=== PATIENT | female | born 1980 | race Caucasian/White ===

== ENCOUNTER 2017-02-12 21:04 | Emergency (ER) | payer MEDICAID ==
[~2017-02-12] VITALS: Ht 160 cm; Wt 70.8 kg
[~2017-02-12 21:04] MED LIST: CIPRO 500MG TA500 MG PO
--- OUTSIDE RECORDS SUMMARY | 2017-02-12 21:40 | External Medical Summary Rpt | CCD ---
Author Author , NURA Organization NURA Address Unknown Phone [email or web address] Care Team Providers Care Asset Administrator Name Role Phone [facility] # [id number], Unavailable Unavailable [facility] # [id number] DESMOND GOMEZ, Unavailable Unavailable DESMOND GOMEZ EMMETT P, Unavailable Unavailable WESTON ALFARO NOEL B, JOSSELYN, Unavailable Unavailable SHANNAN PALACIOS Unavailable Unavailable JONNATHAN GUILLORY, Unavailable Unavailable JONNATHAN BELLA BABATUNDE O, Unavailable Unavailable CARMEN QUINONESATUNDE O [facility] Unavailable Unavailable [facility], [facility] Unavailable Unavailable PHYSICIANS, [facility] Purpose Continuity of Care Document - 03-08-2008 through 2016 Problems Code Diagnosis DOS Provider Status 5990 URINARY 08-05-2010 [facility] INFECTION MEDICALCENT SITE NOT ER SPECIFIED 7881 DYSURIA 08-05-2010 [facility] PHYSICIANS V061 NEED PROPH 07-25-2009 [facility] W/COMB MEDICAL DIPHTH-TETA GROUP NUS-PERTUSS VAC V700 ROUTINE 07-[facility]-2009 [email or web address] [id number] UNSPEC 07-10-2009 [place] [facility]GENCY WITHOUT SERVICES [facility] INTRACT EPILEPSY 80338 OTHER 07-10-2009 [place] [facility] 3671 MYOPIA 12-19-2008 DESMOND GOMEZ 30347 UNSPECIFIED 03-08-2008 GABRIELLE ARCOS ASTIGMATISM Medications Na ND Rx Da Fi Fi Am Da Di Ph RX Ph St me C No te ll ll ou ys ag ar # ys at rm s nt no ma ic us Or Da si cy ia de te s n re d CI 16 04 04 0 20 10 CV 56 SC Ac ND 25 -1 -1 .0 S 76 ANDERSON ti OF 20 1- 1- 00 PH 30 CK ve LO 51 20 20 AR XA 50 11 11 MA BR CI 1 CY IA N # N HC L 05 50 43 0 7 MG TA B CI 16 03 03 14 7 CV 52 GA Ac ND 25 -1 -1 .0 S 50 IN ti OF 20 7- 7- 00 PH 37 EY ve LO 51 20 20 AR XA 50 10 10 MA IN CI 1 CY CH N # AE HC L L 05 S 50 43 0 7 MG TA B Procedures Procedure DOS Code Location Performer Comment CULTURE [address] BACTERIAL 1 KRISTOPHER KRISTOPHER QUANTTATI MEDICALCE MEDICALCE VE COLONY NTER NTER COUNT URINE URNLS DIP [address]7064 ST SCHACK 1 KRISTOPHER SHAWN STICK/TAB LET RGNT PHYSICIAN NON-AUTO S W/O MICRSCP 3D 53556 [place] DOMINIC, RENDERING 0 MEDICAL [place] P W/INTERP IMAGING & [place] [address] [place] [facility], HEAD/BRAI 0 MEDICAL [place] P N W/O IMAGING CONTRAST ASSOCIATE MATERIAL S DETERMINA 59199 PATRICIA GOMEZ TION 9 DESMOND Lundy REFRACTIV E STATE OPHTH 75731 PATRICIA GOMEZ, MEDICAL 9 DESMOND Lundy XM&EVAL COMPRE NEW PT 1/> VST OPH 22041 JOSSELYN ARCOS MEDICAL 8 GABRIELLE Santos Graham XM&EVAL COMPRHNSV ESTAB PT 1/> Encounters Encounter Start End Date Code Location Performer Type Date [facility] ST - 1 1 KRISTOPHER OUTPATIEN T MEDICALCE NTER INITIAL 80942 SUM[facility] BELLA, PREVENTIV 0 0 MEDICAL JONNATHAN Wilhelm GROUP MEDICINE NEW PT AGE 18-39YRS EMERGENCY 77364 NIRMAL QUINONES, DEPT 0 0 EMERGENCY NIKOLAI VISIT SERVICES O HIGH SEVERITY& ASSOCIATE THREAT S FUN
--- OUTSIDE RECORDS SUMMARY | 2017-02-12 21:40 | External Medical Summary Rpt | CCD ---
Author Author , NURA Organization NURA Address Unknown Phone [email or web address] Care Team Providers Care Demolition Engineer Name Role Phone [facility] # [id number], Unavailable Unavailable [facility] # [id number] DESMOND GOMEZ, Unavailable Unavailable DESMOND GOMEZ EMMETT P, Unavailable Unavailable WESTON ALFARO NOEL B, JOSSELYN, Unavailable Unavailable SHANNAN PALACIOS Unavailable Unavailable JONNATHAN GUILLORY, Unavailable Unavailable JONNATHAN BELLA BABATUNDE O, Unavailable Unavailable CARMEN QUINONESATUNDE O [facility] Unavailable Unavailable [facility]ENTER, [facility] Unavailable Unavailable PHYSICIANS, [facility] Purpose Continuity of Care Document - 03-08-2008 through 2016 Problems Code Diagnosis DOS Provider Status 5990 URINARY 08-05-2010 [facility] INFECTION MEDICALCENT SITE NOT ER SPECIFIED 7881 DYSURIA 08-05-2010 [facility] PHYSICIANS V061 NEED PROPH 07-25-2009 [facility] W/COMB MEDICAL DIPHTH-TETA GROUP NUS-PERTUSS VAC V700 ROUTINE 07-25-2009 [facility] [email or web address] 23895 UNSPEC 07-10-2009 [place] [facility] EMERGENCY WITHOUT SERVICES [facility] INTRACT EPILEPSY 91980 OTHER 07-10-2009 [place] [facility] 3671 MYOPIA 12-19-2008 DESMOND GOMEZ 82601 UNSPECIFIED 03-08-2008 GABRIELLE ARCOS ASTIGMATISM Medications Na ND Rx Da Fi Fi Am Da Di Ph RX Ph St me C No te ll ll ou ys ag ar # ys at rm s nt no ma ic us Or Da si cy ia de te s n re d CI 16 04 04 0 20 10 CV 56 SC Ac [place] 25 -1 -1 .0 S 76 ANDERSON ti OF 20 1- 1- 00 PH 30 CK ve LO 51 20 20 AR XA 50 11 11 MA BR CI 1 CY IA N # N HC L 05 50 43 0 7 MG TA B CI 16 03 03 14 7 CV 52 GA Ac [place] 25 -1 -1 .0 S 50 IN ti OF 20 7- 7- 00 PH 37 EY ve LO 51 20 20 AR XA 50 10 10 MA MA CI 1 CY CH N # AE HC L L 05 S 50 43 0 7 MG TA B Procedures Procedure DOS Code Location Performer Comment CULTURE [address] BACTERIAL 1 KRISTOPHERDIANE [facility] MED[facility] MEDICALCE VE COLONY NTER NTER COUNT URINE URNLS DIP 49589 ST SCHACK 1 KRISTOPHER SHAWN STICK/TAB LET RGNT PHYSICIAN NON-AUT[place] W/[place] [address] [place] DOMINIC, HEAD/BRAI 0 MEDICAL [place] P N W/O IMAGING CONTRAST ASSOCIATE MATERIAL S 3D 53886 [place] [facility], RENDERING 0 MEDICAL [place] P W/INTERP IMAGING & ASSOCIATE [place] [address] PATRICIA GOMEZ, MEDICAL 9 DESMOND Lundy XM&EVAL COMPRE NEW PT 1/> VST DETERMINA 39581 PATRICIA GOMEZ TION 9 DESMOND Lundy REFRACTIV E [facility] OPH 98196 JOSSELYN ARCOS MEDICAL 8 GABRIELLE Santos Graham XM&EVAL COMPRHNSV ESTAB PT 1/> Encounters Encounter Start End Date Code Location Performer Type Date [facility] ST - 1 1 KRISTOPHER OUTPATIEN T MEDICALCE NTER INITIAL 35062 [place] JENA, PREVENTIV 0 0 MEDICAL JONNATHAN Wilhelm GROUP MEDICINE NEW PT AGE 18-39YRS EMERGENCY 86898 NIRMAL QUINONES, DEPT 0 0 EMERGENCY NIKOLAI VISIT SERVICES O HIGH SEVERITY& ASSOCIATE THREAT S [facility]
--- OUTSIDE RECORDS SUMMARY | 2017-02-12 21:40 | External Medical Summary Rpt | CCD ---
Author Author , NURA Organization NURA Address Unknown Phone [email or web address] Care Team Providers Care Rn Plasma Center Name Role Phone [facility] # [id number], Unavailable Unavailable [facility] # [id number] DESMOND GOMEZ, Unavailable Unavailable DESMOND GOMEZ EMMETT P, Unavailable Unavailable WESTON ALFARO NOEL B, JOSSELYN, Unavailable Unavailable SHANNAN PALACIOS Unavailable Unavailable JONNATHAN GUILLORY, Unavailable Unavailable JONNATHAN BELLA BABATUNDE O, Unavailable Unavailable CARMEN QUINONESATUNDE O [facility] Unavailable Unavailable [facility], [facility] Unavailable Unavailable PHYSICIANS, [facility] Purpose Continuity of Care Document - 03-08-2008 through 2016 Problems Code Diagnosis DOS Provider Status 5990 URINARY 08-05-2010 [facility] INFECTION MEDICALCENT SITE NOT ER SPECIFIED 7881 DYSURIA 08-05-2010 [facility] PHYSICIANS V061 NEED PROPH 07-25-2009 [facility] W/COMB MEDICAL DIPHTH-TETA GROUP NUS-PERTUSS VAC V700 ROUTINE 07-25-2009 [facility] [email or web address] 82224 UNSPEC 07-10-2009 [place] [facility] EMERGENCY WITHOUT SERVICES [facility] INTRACT EPILEPSY 24594 OTHER 07-10-2009 [place] [facility] 3671 MYOPIA 12-19-2008 DESMOND GOMEZ 17687 UNSPECIFIED 03-08-2008 GABRIELLE ARCOS ASTIGMATISM Medications Na ND Rx Da Fi Fi Am Da Di Ph RX Ph St me C No te ll ll ou ys ag ar # ys at rm s nt no ma ic us Or Da si cy ia de te s n re d CI 16 04 04 0 20 10 CV 56 SC Ac [place] 25 -1 -1 .0 S 76 ANDERSON ti OF 20 1- 1- 00 PH 30 CK ve LO 51 20 20 AR XA 50 11 11 MA BR CI 1 CY IA N # N HC L 05 50 43 0 7 MG TA B CI 16 03 03 14 7 CV 52 GA Ac [place] 25 -1 -1 .0 S 50 IN ti OF 20 7- 7- 00 PH 37 EY ve LO 51 20 20 AR XA 50 10 10 MA CO CI 1 CY CH N # AE HC L L 05 S 50 43 0 7 MG TA B Procedures Procedure DOS Code Location Performer Comment CULTURE [address] BACTERIAL 1 KRISTOPHERDIANE [facility] MEDICALCE VE COLONY NTER NTER COUNT URINE URNLS DIP 39156 ST SCHACK 1 KRISTOPHER SHAWN STICK/TAB LET RGNT PHYSICIAN NON-AUT[place] W/[place] [address] [place] [facility]INIC, HEAD/BRAI 0 MEDICAL [place] P N W/O IMAGING CONTRAST ASSOCIATE MATERIAL S 3D 28623 [place] [facility], RENDERING 0 MEDICAL [place] P W/INTERP IMAGING & ASSOCIATE [place] [address] PATRICIA GOMEZ, MEDICAL 9 DESMOND Lundy XM&EVAL COMPRE NEW PT 1/> VST DETERMINA 24559 PATRICIA GOMEZ TION 9 DESMOND Lundy REFRACTIV E [facility] OPH 35661 JOSSELYN ARCOS MEDICAL 8 GABRIELLE Santos Graham XM&EVAL COMPRHNSV ESTAB PT 1/> Encounters Encounter Start End Date Code Location Performer Type Date [facility] ST - 1 1 KRISTOPHER OUTPATIEN T MEDICALCE NTER INITIAL 67477 [facility] JENA, PREVENTIV 0 0 MEDICAL JONNATHAN Wilhelm GROUP MEDICINE NEW PT AGE 18-39YRS EMERGENCY 22446 NIRMAL QUINONES, DEPT 0 0 EMERGENCY NIKOLAI VISIT SERVICES O HIGH SEVERITY& ASSOCIATE THREAT S [facility]
--- OUTSIDE RECORDS SUMMARY | 2017-02-12 21:40 | External Medical Summary Rpt | CCD ---
Demographics Preferred Language East Timorese Marital Status Unknown Sabianist Affiliation Unknown Race Unknown Ethnic Group Unknown Author Author , NURA LYMAN Address Unknown Phone Immunization No patient found.
--- OUTSIDE RECORDS SUMMARY | 2017-02-12 21:40 | External Medical Summary Rpt | CCD ---
Author Author , NURA Organization NURA Address Unknown Phone [email or web address] Care Team Providers Care Merchandise Flow Team Leader Name Role Phone [facility] # [id number], Unavailable Unavailable [facility] # [id number] DESMOND GOMEZ, Unavailable Unavailable DESMOND GOMEZ EMMETT P, Unavailable Unavailable WESTON ALFARO NOEL B, JOSSELYN, Unavailable Unavailable SHANNAN PALACIOS Unavailable Unavailable JONNATHAN GUILLORY, Unavailable Unavailable JONNATHAN BELLA BABATUNDE O, Unavailable Unavailable CARMEN QUINONESATUNDE O [facility] Unavailable Unavailable [facility]ENTER, [facility] Unavailable Unavailable PHYSICIANS, [facility] Purpose Continuity of Care Document - 03-08-2008 through 2016 Problems Code Diagnosis DOS Provider Status 5990 URINARY 08-05-2010 [facility] INFECTION MEDICALCENT SITE NOT ER SPECIFIED 7881 DYSURIA 08-05-2010 [facility] PHYSICIANS V061 NEED PROPH 07-25-2009 [facility] W/COMB MEDICAL DIPHTH-TETA GROUP NUS-PERTUSS VAC V700 ROUTINE 07-25-2009 [facility] [email or web address] 64857 UNSPEC 07-10-2009 [place] [facility] EMERGENCY WITHOUT SERVICES [facility] INTRACT EPILEPSY 52237 OTHER 07-10-2009 [place] [facility] 3671 MYOPIA 12-19-2008 DESMOND GOMEZ 91495 UNSPECIFIED 03-08-2008 GABRIELLE ARCOS ASTIGMATISM Medications Na ND Rx Da Fi Fi Am Da Di Ph RX Ph St me C No te ll ll ou ys ag ar # ys at rm s nt no ma ic us Or Da si cy ia de te s n re d CI 16 04 04 0 20 10 CV 56 SC Ac SC 25 -1 -1 .0 S 76 ANDERSON ti OF 20 1- 1- 00 PH 30 CK ve LO 51 20 20 AR XA 50 11 11 MA BR CI 1 CY IA N # N HC L 05 50 43 0 7 MG TA B CI 16 03 03 14 7 CV 52 GA Ac SC 25 -1 -1 .0 S 50 IN ti OF 20 7- 7- 00 PH 37 EY ve LO 51 20 20 AR XA 50 10 10 MA ME CI 1 CY CH N # AE HC L L 05 S 50 43 0 7 MG TA B Procedures Procedure DOS Code Location Performer Comment CULTURE [address] BACTERIAL 1 KRISTOPHER KRISTOPHER QUANTTATI MEDICALCE MEDICALCE VE COLONY NTER NTER COUNT URINE URNLS DIP 46065 ST SCHACK 1 KRISTOPHER SHANW STICK/TAB LET RGNT PHYSICIAN NON-AUTO S W/O MICRSCP 3D 09478 [place] DOMINIC, RENDERING 0 MEDICAL [place] P W/INTERP IMAGING & [place] [address] [place] DOMINIC, HEAD/BRAI 0 MEDICAL [place] P N W/O IMAGING CONTRAST ASSOCIATE MATERIAL S DETERMINA 08086 PATRICIA GOMEZ TION 9 DESMOND Lundy REFRACTIV E STATE OPHTH 40734 PATRICIA GOMEZ, MEDICAL 9 DESMOND Lundy XM&EVAL COMPRE NEW PT 1/> VST OPH 82616 JOSSELYN ARCOS MEDICAL 8 GABRIELLE Santos Graham XM&EVAL COMPRHNSV ESTAB PT 1/> Encounters Encounter Start End Date Code Location Performer Type Date [facility] ST - 1 1 KRISTOPHER OUTPATIEN T MEDICALCE NTER INITIAL 06459 SUM[facility]ERROD BELLA, PREVENTIV 0 0 MEDICAL JONNATHAN Wilhelm GROUP MEDICINE NEW PT AGE 18-39YRS EMERGENCY 85477 NIRMAL QUINONES, DEPT 0 0 EMERGENCY NIKOLAI VISIT SERVICES O HIGH SEVERITY& ASSOCIATE THREAT S FUN
--- OUTSIDE RECORDS SUMMARY | 2017-02-12 21:40 | External Medical Summary Rpt | CCD ---
Demographics Preferred Language Danish Marital Status Unknown Scientologist Affiliation Unknown Race Unknown Ethnic Group Unknown Author Author , NURA LYMAN Address Unknown Phone Immunization No patient found.
--- NOTE | 2017-02-12 21:44 | Emergency Room Report ---
History of Present Illness Time Seen by 2047 Presenting Problem in Triage Pt arrived:Walked Presenting Problem:HEAVY MENSTRUAL BLEEDING, PASSING CLOTS, NO ABD CRAMPING AT THIS TIME. SXS STARTED THIS EVENING AROUND 1999. 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 N Clinical Suspician of Infection? N Mental Status: 1 - Regular (Normal Baseline) Sepsis Risk:Low Sepsis Risk Have you (or family members/close friends) recently traveled outside the [place]? N If Yes, where/when: Have you had exposure to infectious disease within the past month? N TB? Other? Specify: Source patient, RN notes reviewed, family, old records Exam Limitations no limitations Comment on reg menses and now with heavy bleeding with clots and crampy pain which started today w/o syncope Cardiac Chest Pain Chest pain indicative of cardiac No Timing/Duration this evening Severity moderate ALLERGIES Coded Allergies: Penicillins (Intermediate, I-HIVES 02/12/17) Home Medications Reported Medications No Known Home Medications History Medical History General Angina: No NC: No Hypertension? No Hyperlipidemia? No COPD? No Asthma? No CVA? No Seizures? Yes Diabetes? No GB Disease: No MRSA? No TB? No Cancer? 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 Respiratory denies cough, denies shortness of breath, denies wheezing Cardiovascular denies chest pain, denies syncope Gastrointestinal denies abdominal pain, denies diarrhea, denies vomiting Genitourinary see HPI, abnormal vaginal bleeding. denies: dysuria, frequency, hesitancy, hematuria. Musculoskeletal denies back pain, denies joint pain, denies joint swelling, denies neck pain Skin denies rash Psychiatric/Neurological denies headache, denies seizure Physical Exam Vital Signs Vital Signs Date Time Temp Pulse Resp B/P Pulse O2 O2 Flow FiO2 Ox Delivery Rate 02/12 2249 98.6 69 18 118/65 100 02/12 2210 63 20 106/57 98 02/12 2121 98.7 77 20 141/49 99 - WBC >12,000 or <4,000 or 10% bands? 2 or more SIRS Criteria Met? B/P:118/65 MAP:79 Creatinine >2.0? UA output<0.5ml/kg/hr for 2 hrs? Platelet count >100,000? Lactate >2.0mmol/1? INR >1.2 or PTT > than 60 sec? Evidence of Organ Dysfunction? Provider documented clinical suspician of infection? N Sepsis Criteria Count: 1 Sepsis Risk: Low Sepsis Risk General Appearance no apparent distress Eye Exam - bilateral eye PERRL, bilateral eye EOMI Ear, Nose, Throat normal ENT inspection Neck supple Respiratory Status No: respiratory distress. 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 No Results/Orders Laboratory Tests 02/12/17 2335: Urine Color YELLOW, Urine Appearance CLEAR, Urine pH 6.0, Ur Specific Ambrose 1.020, Urine Protein 1+ H, Urine Ketones NEGATIVE, Urine Blood 2+ H, Urine Nitrate NEGATIVE, Urine Bilirubin NEGATIVE, Urine Urobilinogen 0.2, Ur Leukocyte Esterase NEGATIVE, Urine RBC 20-50, Urine Bacteria 1+, Urine Glucose NEGATIVE 02/12/17 2225: Sodium 140, Potassium 4.2, Chloride 107, Carbon Dioxide 30, BUN 12, Creatinine 0.9, Estimated Creat Clear 96, Estimated GFR (MDRD) 70, Glucose 103, Calcium 7.9 L, Total Bilirubin 0.2, AST 10 L, ALT 10 L, Alkaline Phosphatase 60, Total Protein 6.2 L, Albumin 2.8 L, Globulin 3.4 H, Albumin/Globulin Ratio 0.8 L 02/12/17 2150: WBC 12.2 H, RBC 4.32, Hgb 12.2, Hct 36.5 L, MCV 84.6, RDW 15.2, Plt Count 272, MPV 9.6, Gran % 50.3, Gran # 6.1, Lymphocytes % 39.6, Monocytes % 4.4, Eosinophils % 4.8, Basophils % 0.9, Lymphocytes # 4.8 H, Monocytes # 0.5, Eosinophils # 0.6 H, Basophils # 0.1, PUBS MCHC 33.3, MCH 28.2 Current Medication Orders Sig/Gladys Start time Last Medication Dose Route Stop Time Status Admin Sodium Chloride 1,000 ML .STK-MED ONE 02/12 2131 DC IV Sodium Chloride 10 ML PRN PRN 02/12 2130 AC IV 02/14 2128 Sodium Chloride 1,000 ML .Q1H1M 02/12 2130 DC 02/12 IV 02/12 Sodium Chloride 10 ML PRN PRN 02/12 2130 AC IV 02/13 2130 Orders Procedure Date/time Status DIET-NOTHING BY MOUTH 02/[address] ABD & PELVIS W/O CONTRAST 02/[address] SCAN REQ 02/13 2212 Complete SERUM , QUAL 02/13 2144 Complete IV SALINE LOCK 02/13 2128 Active Urine Test, Perform/ 02/13 2128 Complete URINALYSIS/COMPLETE 02/13 2128 Complete CBC WITH AUTO DIFF 02/13 2128 Complete CHEM 12 PROFILE 02/13 2128 Complete XRAY/CT/US XRAY/CT/US CT abdomen, pelvis CT interpretation by discussed w/radiologist Time results known: 0005 CT Results abnormal (see report) Departure Departure Time of Disposition 2357 Disposition DC Home or Self Care(routine) Clinical Impression Primary Impression: DUB (dysfunctional uterine bleeding) Secondary Impressions: Cholelithiasis Qualifiers: Cholelithiasis location: gallbladder Cholecystitis presence: without cholecystitis Biliary obstruction: without biliary obstruction Qualified Code: K80.20 - Calculus of gallbladder without cholecystitis without obstruction Condition STABLE Referrals Marycruz SHINE,Gregory Valdez discussed with dr colby Patient Instructions DI for Abnormal Uterine Bleeding Additional Instructions call dr colby at 0830 for follow up and use nsaif Discharge Counseling Counseled pt/family regarding diagnosis, test results, follow up needs Prescriptions Current Visit Scripts No Known Home Medications ED Critical Care Critical Care No at 0006
[2017-02-12 22:01] LABS: LYMPH # 4.8 K/mm3 (0.7-4.5); LYMPH % 39.6 % (10-50.0)
[2017-02-12 22:28] LABS: HEMOGLOBIN 12.2 g/dL (12.2-16.2)
[2017-02-12 23:46] LABS: URINE BILIRUBIN - DIPSTICK NEGATIVE (NEG); URINE BLOOD 2+ (NEG)
[2017-02-13 00:23] VITALS: BP 99/51
--- NOTE | 2017-02-13 06:30 | RADIOLOGY REPORT PS360 ---
CT ABD PELVIS W/O CONTRAST CLINICAL INDICATION: Lower abdominal pain with heavy vaginal bleeding ABD PAIN ORDERING PHYSICIAN: Anitha Ramirez MD PATIENT AGE: 36 years COMPARISON: None TECHNIQUE: Axial images obtained with sagittal and coronal reformats. PROCEDURE: Oral Contrast: None IV Contrast: None . FINDINGS: No acute finding in the lower chest. Abdomen: The liver, spleen, adrenal glands, pancreas, kidneys, ureters, and urinary bladder show no acute finding. Left adrenal gland is however enlarged measuring up to 2.8 x 1.5 cm and at -9 Hounsfield units consistent with an adenoma. Multiple stones are present within a contracted gallbladder. No biliary dilatation. No renal or ureteral calculi. There is an appendicolith present within the retrocecal appendix. Appendicolith measures 8 mm. No evidence of appendicitis. No intestinal obstruction or free air. No evidence of diverticulitis. Pelvis: The uterus is enlarged and has a somewhat lobular contour with some heterogeneous attenuation along the lower uterine segment. These findings raise suspicion of fibroid involvement. Pelvic ultrasound may be of further value. Uterus measures 12.7 cm longitudinal and 9 cm transverse. There is some slight increased density along the uterine fundal region which could be due to fibroid involvement as well. There is some increased density within the vaginal canal which could be due to blood products No acute bony anomalies. INDICATION: 1. Cholelithiasis. 2. Enlarged lobular uterus suggestive of fibroids and may be confirmed with ultrasound. Possible blood within the vaginal canal
== END 2017-02-13 00:24 | disposition home or self-care (01) ==
LOC: ER 21:04
PROVIDERS: Emergency Medicine
DX: N93.8 Other specified abnormal uterine and vaginal bleeding (principal); K80.80 Other cholelithiasis without obstruction; F17.210 Nicotine dependence, cigarettes, uncomplicated

== ENCOUNTER → 2017-02-19 | Outpatient (CLI) | payer MEDICAID ==
--- NOTE | 2017-02-19 16:00 | RADIOLOGY REPORT PS360 ---
US PELVIS-TRANSVAGINAL ONLY HISTORY: Dysfunctional uterine bleeding, DUB ORDERING PHYSICIAN: Gregory Joel MD PATIENT AGE: 36 years COMPARISON: None FINDINGS: UTERUS: The uterus measures 10 x 6 x 6.5 cm. Combined endometrial thickness is 13 mm. Heterogeneous echogenicity is present in the anterior aspect of the body the uterus consistent with fibroid measuring 2.4 x 2.5 cm. There are multiple nabothian cysts RIGHT OVARY: 3 x 2.7 cm. 2 cm cyst LEFT OVARY: 3.7 x 2.6 cm. There is a 2 cm cyst and a 1 cm cyst CUL-DE-SAC FLUID: No cul-de-sac fluid apparent OTHER FINDINGS: None IMPRESSION: 1. Enlarged uterus with fibroid involvement. 2. Thickened endometrium at 13 mm. 3. Small bilateral ovarian cysts
== END ==
LOC: RAD 15:06
DX: N92.0 Excessive and frequent menstruation with regular cycle (principal); N93.8 Other specified abnormal uterine and vaginal bleeding; D25.9 Leiomyoma of uterus, unspecified

== ENCOUNTER → 2017-03-03 | Outpatient (CLI) | payer MEDICAID ==
[~2017-03-03] MED LIST changes: +FERROUS SULFAT325 M2 PO; +HYDROCODONE-APA1 TA1 PO
[2017-03-03 11:52] LABS: URINE BILIRUBIN - DIPSTICK NEGATIVE (NEG); URINE BLOOD TRACE-INTACT (NEG)
[2017-03-03 12:07] LABS: LYMPH # 2.8 K/mm3 (0.7-4.5); LYMPH % 32.5 % (10-50.0)
[2017-03-03 12:13] LABS: HEMOGLOBIN 7.5 g/dL (12.2-16.2)
[2017-03-03 12:18] LABS: URINE SQUAMOUS CELLS OCC #/hpf (0-5)
[2017-03-03 13:03] LABS: BUN 12 mg/dL (7-18)
[2017-03-03 13:04] LABS: GFR (ESTIMATED) 94 ML/MIN (59-)
== END ==
LOC: LAB 11:13
PROVIDERS: Obstetrics & Gynecology
DX: N92.0 Excessive and frequent menstruation with regular cycle (principal); D25.9 Leiomyoma of uterus, unspecified; Z01.818 Encounter for other preprocedural examination

== ENCOUNTER → 2017-03-04 | Outpatient (CLI) | payer MEDICAID ==
[2017-03-04] VITALS (19 sets, daily range): BP systolic 100–143; BP diastolic 54–74
[~2017-03-04] VITALS: Ht 160 cm; Wt 72.1 kg
[2017-03-04 09:18] LABS: ABO BLOOD TYPE A; RH BLOOD TYPE POSITIVE
[2017-03-04 10:15] LABS: ANTIHUMAN GLOB CROSSMATCH COMPAT
[2017-03-04 15:29] LABS: HEMOGLOBIN 10.2 g/dL (12.2-16.2)
== END ==
LOC: COP 08:10
PROVIDERS: Obstetrics & Gynecology
DX: D64.9 Anemia, unspecified (principal)
CPT/HCPCS: P9016

== ENCOUNTER 2017-03-06 06:09 | Inpatient (IN) | payer MEDICAID ==
[2017-03-06] VITALS (13 sets, daily range): BP systolic 110–125; BP diastolic 59–74
[~2017-03-06] VITALS: Ht 160 cm; Wt 72.1 kg
[~2017-03-06 06:09] MED LIST changes: -FERROUS SULFAT325 M2 PO; -HYDROCODONE-APA1 TA1 PO
--- OUTSIDE RECORDS SUMMARY | 2017-03-06 06:13 | External Medical Summary Rpt | CCD ---
Demographics Preferred Language Danish Marital Status Unknown Yazdanism Affiliation Unknown Race Unknown Ethnic Group Unknown Author Author , NURA LYMAN Address Unknown Phone Immunization Unable to retrieve immunization data due to connection failure with Immunization Registry. Please try again later.
--- OUTSIDE RECORDS SUMMARY | 2017-03-06 06:13 | External Medical Summary Rpt | CCD ---
Author Author , NURA LYMAN Address Unknown Phone [email or web address] Purpose Continuity of Care Document - 02-12-2017 through 2016 Results Labs Lab Lab Date Result Refere Interp Status Commen Order Detail nces retati t Range on Whole blood hemoglobin and hematocrit pa (03-04-2017 15:06) Blood = 10.2 12.2-16 complet hemoglo 017 g/dL .2 ed bin 15:06 measure ment (mass/v olum Blood = 32.6 37.0-47 complet hematoc 017 % .0 ed rit 15:06 (volume fractio n) Blood product special preparation [Type] (03-04-2017 12:15) Blood BLOOD complet product 017 UNIT ed 12:15 RELEASE special prepara tion [Type] Leukocyte reduction of packed red blood (03-04-2017 10:03) Leukocy BLOOD complet te 017 UNIT ed reducti 10:03 RELEASE on of BLOOD packed UNIT red RELEASE blood L Comment: Comment: BLOOD UNIT # : [id number] RELEASED 03/04/17 Comment: Kya Santa Blood product special preparation [Type] (03-04-2017 10:03) Blood BLOOD complet product 017 UNIT ed 10:03 RELEASE special prepara tion [Type] Crossmatch (03-04-2017 08:30) Comment: Hold? N Comment: Transfuse now? 2 UNITS NOW Immedia COMPAT complet te spin 017 COMPAT ed 08:30 L crossma tch Interpr COMPAT complet etation 017 COMPAT ed of 08:30 L major crossma tch resul Blood type and crossmatch (03-04-2017 08:30) Comment: Hold? N Comment: Transfuse now? 2 UNITS NOW Blood A A L complet ABO 017 ed group 08:30 typing Rh POSITIV complet blood 017 E ed group 08:30 POSITIV typing E L Materna NEGATIV NEGATIV complet l 017 E E ed antibod 08:30 NEGATIV y E L screen Blood type & Crossmatch panel in Blood (03-04-2017 08:30) Blood NEGATIV NEGATIV complet group 017 E E ed antibod 08:30 y screen [Presen ce] in Serum or Plasma Rh POSITIV complet [Type] 017 E ed in 08:30 Blood ABO A complet group 017 ed [Type] 08:30 in Blood Blood type & Crossmatch panel in Blood (03-04-2017 08:30) Major COMPAT complet crossma 017 ed tch 08:30 [interp retatio n] Major COMPAT complet crossma 017 ed tch 08:30 [interp retatio n] by Immedia te spin Comprehensive metabolic panel (03-03-2017 11:16) Protein = 7.3 6.4-8.2 complet total 017 gm/dL ed ser/jas 11:16 s ALT = 19 12-78 complet (SGPT) 017 U/L ed ser/jas 11:16 s Serum = 13 15-37 complet or 017 U/L ed plasma 11:16 asparta te aminotr ansfera Serum = 138 136-145 complet sodium 017 mmoL/L ed measure 11:16 ment Serum = 4.4 3.5-5.1 complet potassi 017 mmoL/L ed um 11:16 measure ment Serum = 91 74-106 complet or 017 mg/dL ed plasma 11:16 glucose measure ment (mas Serum = 3.9 1.3-3.2 complet globuli 017 gm/dL ed n 11:16 measure ment (mass/v olume) Estimat = 94 59- complet ed 017 ML/MIN ed glomeru 11:16 lar filtrat ion rate (GF Comment: REFERENCE RANGE: >60 ML/MIN/1.73 SQUARE METERS Comment: If this patient is -Pakistani, then multiply the Comment: result by 1.210. Serum = 0.7 0.55-1. complet or 017 mg/dL 02 ed plasma 11:16 creatin ine measure ment ( Carbon = 27 21.0-32 complet dioxide 017 mmoL/L .0 ed 11:16 measure ment Serum = 104 98-107 complet or 017 mmoL/L ed plasma 11:16 chlorid e measure ment (mo Serum = 8.5 8.5-10. complet or 017 mg/dL 1 ed plasma 11:16 calcium measure ment (mas Serum = 12 7-18 complet or 017 mg/dL ed plasma 11:16 urea nitroge n measure men Serum = 0.2 0.2-1.0 complet or 017 mg/dL ed plasma 11:16 total bilirub in measure m Serum = 70 46-116 complet or 017 U/L ed plasma 11:16 alkalin e phospha tase janet Serum = 3.4 3.4-5.0 complet or 017 gm/dL ed plasma 11:16 albumin measure ment (mas Serum = 0.9 1.1-1.8 complet or 017 ed plasma 11:16 albumin /globul in mass ra Serum test (03-03-2017 11:16) Serum = NEG complet pregnan 017 NEGATIV ed cy test 11:16 E Urinalysis with microscopy (03-03-2017 11:16) Urine = NONE O complet leukocy 017 wbc/hpf ed shahab 11:16 count (number /volume ) Urine 0.2 0.2 NEG complet urobili 017 L ed nogen 11:16 E.U./dL detecti on by test str [place] OCC OCC 0-5 complet s 017 L ed epithel 11:16 #/hpf ial cells detecti on in u Urine = 1.010 1.005-1 complet specifi 017 .030 ed c 11:16 gravity measure ment Erythro OCC OCC 0 complet cytes 017 L ed detecti 11:16 rbc/hpf on in urine sedimen t Urine = NEG complet protein 017 NEGATIV ed 11:16 E mg/dL measure ment by automat ed t Urine = 5.5 5.0-8.5 complet pH 017 ed 11:16 Urine NEGATIV NEG complet nitrite 017 E ed 11:16 NEGATIV detecti E L on by test strip Mucus NEGATIV NEG complet detecti 017 E ed on in 11:16 NEGATIV urine E L sedimen t by lig Urine NEGATIV NEG complet ketones 017 E ed 11:16 NEGATIV detecti E L on by mg/dL automat ed shahab Glucose = NEG complet ur 017 NEGATIV ed test 11:16 E strip Urine YELLOW YELLOW complet color 017 YELLOW ed 11:16 L Urine TRACE-I NEG complet blood 017 NTACT ed detecti 11:16 TRACE-I on NTACT L Urine NEGATIV NEG complet total 017 E ed bilirub 11:16 NEGATIV in E L detecti on by test Bacteri TRACE O complet a 017 TRACE L ed detecti 11:16 on in urine sedimen t by Urine CLEAR CLEAR complet appeara 017 CLEAR L ed nce 11:16 determi nation CBC w auto diff (03-03-2017 11:16) Blood = 8.6 4.8-10. complet leukocy 017 K/MM3 8 ed shahab 11:16 count (number /volume ) Automat = 15.3 11.5-17 complet ed 017 % .5 ed erythro 11:16 cyte distrib ution width Red = 3.05 4.2-5.4 complet blood 017 M/mm3 ed cell 11:16 count Blood = 272 142-424 complet platele 017 K/mm3 ed t count 11:16 Automat = 9.9 7.4-10. complet ed 017 fl 4 ed blood 11:16 platele t mean volume janet Sarpy % = 4.8 % 1.7-9.3 complet 017 ed 11:16 Absolut = 0.4 0.1-1.0 complet e 017 K/mm3 ed monocyt 11:16 e count Automat = 82.1 82.2-97 complet ed 017 fl .8 ed erythro 11:16 cyte mean corpusc ular v Automat = 30.1 31.8-35 complet ed 017 g/dl .4 ed erythro 11:16 cyte mean corpusc ular h Mean = 24.7 27-31.2 complet corpusc 017 pg ed ular 11:16 hemoglo bin (MCH) determ Lymphoc = 32.5 10-50.0 complet yte 017 % ed count, 11:16 blood, automat ed Absolut = 2.8 0.7-4.5 complet e 017 K/mm3 ed lymphoc 11:16 yte count Blood = 7.5 12.2-16 complet hemoglo 017 g/dL .2 ed bin 11:16 measure ment (mass/v olum Comment: CRITICAL RESULTS Comment: RESULTS CALLED TO: 03/03/17 1213 O'[place],Kya Blood = 25.0 37.0-47 complet hematoc 017 % .0 ed rit 11:16 (volume fractio n) Granulo = 59.8 37.0-80 complet cyte 017 % .0 ed percent 11:16 age Blood = 5.1 1.8-7.8 complet granulo 017 K/mm3 ed cytes 11:16 automat ed count (numb Automat = 2.6 % 0.1-12. complet ed 017 0 ed blood 11:16 eosinop hils/10 0 leukocy t Automat = 0.2 0.0-0.4 complet ed 017 K/mm3 ed blood 11:16 eosinop hil count Baso % = 0.5 % 0.1-2.0 complet 017 ed 11:16 Automat = 0.0 0-0.2 complet ed 017 K/MM3 ed blood 11:16 basophi l count (count/ vo Urinalysis dipstick W Reflex Microscopic panel in Urine (03-03-2017 11:16) Bacteri TRACE O complet a 017 ed [Presen 11:16 ce] in Urine sedimen t by Light microsc opy Erythro OCC 0 complet cytes 017 ed [Presen 11:16 ce] in Urine sedimen t by Light microsc opy Epithel OCC 0#/hp complet ial 017 f - ed cells.s 11:16 5#/hp quamous f [Presen ce] in Urine sedimen t by Microsc opy high power field Urinalysis dipstick W Reflex Microscopic panel in Urine (03-03-2017 11:16) Appeara CLEAR CLEAR complet nce of 017 ed Urine 11:16 Bilirub NEGATIV NEG complet in 017 E ed [Presen 11:16 ce] in Urine by Test strip Erythro TRACE-I NEG complet cytes 017 NTACT ed [Presen 11:16 ce] in Urine Color YELLOW YELLOW complet of 017 ed Urine 11:16 Ketones NEGATIV NEG complet 017 E ed [Presen 11:16 ce] in Urine by Automat ed test strip Mucus NEGATIV NEG complet [Presen 017 E ed ce] in 11:16 Urine sedimen t by Light microsc opy Nitrite NEGATIV NEG complet 017 E ed [Presen 11:16 ce] in Urine by Test strip Urobili 0.2 NEG complet nogen 017 ed [Presen 11:16 ce] in Urine by Test strip Urinalysis with microscopy (02-12-2017 23:35) Urine 0.2 0.2 NEG complet urobili 017 L ed nogen 23:35 E.U./dL detecti on by test str Urine = 1.020 1.005-1 complet specifi 017 .030 ed c 23:35 gravity measure ment Erythro 20-50 0 complet cytes 017 20-50 L ed detecti 23:35 on in rbc/hpf urine sedimen t Urine 02-12-2 1 + NEG complet protein 017 mg/dL ed 23:35 measure ment by automat ed t Urine 02-12-2 = 6.0 5.0-8.5 complet pH 017 ed 23:35 Urine 02-12-2 NEGATIV NEG complet nitrite 017 E ed 23:35 NEGATIV detecti E L on by test strip Mucus NEGATIV NEG complet detecti 017 E ed on in 23:35 NEGATIV urine E L sedimen t by lig Urine NEGATIV NEG complet ketones 017 E ed 23:35 NEGATIV detecti E L on by mg/dL automat ed shahab Glucose = NEG complet ur 017 NEGATIV ed test 23:35 E strip Urine YELLOW YELLOW complet color 017 YELLOW ed 23:35 L Urine 02-12-2 2+ 2+ L NEG complet blood 017 ed detecti 23:35 on Urine NEGATIV NEG complet total 017 E ed bilirub 23:35 NEGATIV in E L detecti on by test Bacteri 02-12- 1+ 1+ L O complet a 017 ed detecti 23:35 on in urine sedimen t by Urine CLEAR CLEAR complet appeara 017 CLEAR L ed nce 23:35 determi nation Urinalysis dipstick W Reflex Microscopic panel in Urine (02-12-2017 23:35) Bacteri 02-12-2 1+ O complet a 017 ed [Presen 23:35 ce] in Urine sedimen t by Light microsc opy Erythro 20-50 0 complet cytes 017 ed [Presen 23:35 ce] in Urine sedimen t by Light microsc opy Urinalysis dipstick W Reflex Microscopic panel in Urine (02-12-2017 23:35) Appeara CLEAR CLEAR complet nce of 017 ed Urine 23:35 Bilirub NEGATIV NEG complet in 017 E ed [Presen 23:35 ce] in Urine by Test strip Erythro 02-12-2 2+ NEG Abnorma complet cytes 017 l ed [Presen 23:35 ce] in Urine Color YELLOW YELLOW complet of 017 ed Urine 23:35 Ketones NEGATIV NEG complet 017 E ed [Presen 23:35 ce] in Urine by Automat ed test strip Mucus NEGATIV NEG complet [Presen 017 E ed ce] in 23:35 Urine sedimen t by Light microsc opy Nitrite NEGATIV NEG complet 017 E ed [Presen 23:35 ce] in Urine by Test strip Urobili 0.2 NEG complet nogen 017 ed [Presen 23:35 ce] in Urine by Test strip Comprehensive metabolic panel (02-12-2017 22:25) Protein = 6.2 6.4-8.2 complet total 017 gm/dL ed ser/jas 22:25 s ALT = 10 12-78 complet (SGPT) 017 U/L ed ser/jas 22:25 s Serum = 10 15-37 complet or 017 U/L ed plasma 22:25 asparta te aminotr ansfera Serum = 140 136-145 complet sodium 017 mmoL/L ed measure 22:25 ment Serum = 4.2 3.5-5.1 complet potassi 017 mmoL/L ed um 22:25 measure ment Serum = 103 74-106 complet or 017 mg/dL ed plasma 22:25 glucose measure ment (mas Serum = 3.4 1.3-3.2 complet globuli 017 gm/dL ed n 22:25 measure ment (mass/v olume) Estimat = 70 59- complet ed 017 ML/MIN ed glomeru 22:25 lar filtrat ion rate (GF Comment: REFERENCE RANGE: >60 ML/MIN/1.73 SQUARE METERS Comment: If this patient is -Pakistani, then multiply the Comment: result by 1.210. Estimat = 96 50-200 complet ion of 017 ML/MIN ed creatin 22:25 ine renal clearan ce Serum = 0.9 0.55-1. complet or 017 mg/dL 02 ed plasma 22:25 creatin ine measure ment ( Carbon = 30 21.0-32 complet dioxide 017 mmoL/L .0 ed 22:25 measure ment Serum = 107 98-107 complet or 017 mmoL/L ed plasma 22:25 chlorid e measure ment (mo Serum = 7.9 8.5-10. complet or 017 mg/dL 1 ed plasma 22:25 calcium measure ment (mas Serum = 12 7-18 complet or 017 mg/dL ed plasma 22:25 urea nitroge n measure men Serum = 0.2 0.2-1.0 complet or 017 mg/dL ed plasma 22:25 total bilirub in measure m Serum = 60 46-116 complet or 017 U/L ed plasma 22:25 alkalin e phospha tase janet Serum = 2.8 3.4-5.0 complet or 017 gm/dL ed plasma 22:25 albumin measure ment (mas Serum = 0.8 1.1-1.8 complet or 017 ed plasma 22:25 albumin /globul in mass ra Serum test (02-12-2017 22:23) Serum = NEG complet pregnan 017 NEGATIV ed cy test 22:23 E CBC w auto diff (02-12-2017 21:50) Blood = 12.2 12.2-16 complet hemoglo 017 g/dL .2 ed bin 21:50 measure ment (mass/v olum Blood = 36.5 37.0-47 complet hematoc 017 % .0 ed rit 21:50 (volume fractio n) Granulo = 50.3 37.0-80 complet cyte 017 % .0 ed percent 21:50 age Blood = 6.1 1.8-7.8 complet granulo 017 K/mm3 ed cytes 21:50 automat ed count (numb Automat = 4.8 % 0.1-12. complet ed 017 0 ed blood 21:50 eosinop hils/10 0 leukocy t Automat = 0.6 0.0-0.4 complet ed 017 K/mm3 ed blood 21:50 eosinop hil count Baso % = 0.9 % 0.1-2.0 complet 017 ed 21:50 Automat 10-19-2 = 0.1 0-0.2 complet ed 017 K/MM3 ed blood 21:50 basophi l count (count/ vo Blood = 12.2 4.8-10. complet leukocy 017 K/MM3 8 ed shahab 21:50 count (number /volume ) Automat = 15.2 11.5-17 complet ed 017 % .5 ed erythro 21:50 cyte distrib ution width Red = 4.32 4.2-5.4 complet blood 017 M/mm3 ed cell 21:50 count Blood = 272 142-424 complet platele 017 K/mm3 ed t count 21:50 Automat = 9.6 7.4-10. complet ed 017 fl 4 ed blood 21:50 platele t mean volume janet Sarpy % = 4.4 % 1.7-9.3 complet 017 ed 21:50 Absolut = 0.5 0.1-1.0 complet e 017 K/mm3 ed monocyt 21:50 e count Automat = 84.6 82.2-97 complet ed 017 fl .8 ed erythro 21:50 cyte mean corpusc ular v Automat = 33.3 31.8-35 complet ed 017 g/dl .4 ed erythro 21:50 cyte mean corpusc ular h Mean = 28.2 27-31.2 complet corpusc 017 pg ed ular 21:50 hemoglo bin (MCH) determ Lymphoc = 39.6 10-50.0 complet yte 017 % ed count, 21:50 blood, automat ed Absolut = 4.8 0.7-4.5 complet e 017 K/mm3 ed lymphoc 21:50 yte count
--- OUTSIDE RECORDS SUMMARY | 2017-03-06 06:13 | External Medical Summary Rpt | CCD ---
Demographics Preferred Language Vietnamese Marital Status Unknown Zoroastrian Affiliation Unknown Race Unknown Ethnic Group Unknown Author Author , NURA LYMAN Address Unknown Phone Immunization Unable to retrieve immunization data due to connection failure with Immunization Registry. Please try again later.
--- OUTSIDE RECORDS SUMMARY | 2017-03-06 06:13 | External Medical Summary Rpt | CCD ---
Author Author [employer] Organization [employer] Address Unknown Phone Unavailable Purpose Continuity of Care Document - through 2016
--- OUTSIDE RECORDS SUMMARY | 2017-03-06 06:13 | External Medical Summary Rpt | CCD ---
Author Author , NURA LYMAN Address Unknown Phone [email or web address] Purpose Continuity of Care Document - 02-12-2017 [...] Comment: BLOOD UNIT # : [id number] RELEASED 03/04/17 Comment: Kya Santa Blood product [...] SQUARE METERS Comment: If this patient is -Romanian, then multiply the Comment: result by 1.210. [...] blood 11:16 platele t mean volume janet [place] % = 4.8 % 1.7-9.3 complet 017 [...] SQUARE METERS Comment: If this patient is -Romanian, then multiply the Comment: result by 1.210. [...] blood 21:50 platele t mean volume janet [place] % = 4.4 % 1.7-9.3 complet 017 [...]
--- OUTSIDE RECORDS SUMMARY | 2017-03-06 06:14 | External Medical Summary Rpt ---
Author Author [employer], [employer] Organization [employer] Address Unknown Phone Unavailable Results Hemoglobin & Hematocrit panel in Blood Observa Value Referen Units Interpr Notes Date tion ce etation Range Hematocri 37.0 - % Low No Nov 8 t [Volume 47.0 informati 2017 3:06 on in PM Fraction] source of Blood data Hemoglobi 12.2 - g/dL Low No Nov 8 n 16.2 informati 2017 3:06 [Mass/vol on in PM ume] in source Blood data Blood product special preparation [Type] Observa Value Referen Units Interpr Notes Date tion ce etation Range Blood BLOOD No No No BLOOD Nov 8 product UNIT informa informa informa UNIT # 2017 RELEASE tion in tion in tion in : W0372 12:15 special source source source 17 PM data data data [id number] prepara RELEASE tion D [Type] 7GJim serra POSITIV E Blood product special preparation [Type] Observa Value Referen Units Interpr Notes Date tion ce etation Range Blood BLOOD No No No BLOOD Feb 8 product UNIT informa informa informa UNIT # 2017 RELEASE tion in tion in ti in : W0832 10:03 special source source source 17 AM data data data [id number] prepara RELEASE tion D [Type] 7[place]ilar [place] Blood type & Crossmatch panel in Blood Observa Value Referen Units Interpr Notes Date tion ce etation Range Hold? N Transfuse now? 2 UNITS NOW Blood NEGATIV NEGATIV No No No Feb 8 group E E informa informa informa 2017 antibod tion in tion in tion in 8:30 AM y source source source screen data data data [Presen ce] in Serum or Plasma Rh POSITIV No No No No Nov 8 [Type] E informa informa informa informa 2017 in tion in tion in tion in tion in 8:30 AM Blood source source source source data data data data ABO A No No No No Feb 8 group informa informa informa informa 2017 [Type] tion in tion in tion in tion in 8:30 AM in source source source source Blood data data data data Blood type & Crossmatch panel in Blood Observa Value Referen Units Interpr Notes Date tion ce etation Range Hold? N Transfuse now? 2 UNITS NOW Major COMPAT No No No No Feb 8 crossma informa informa informa informa 2017 tch tion in tion in tion in tion in 8:30 AM [interp source source source source retatio data data data data n] Major COMPAT No No No No Feb 8 crossma informa informa informa informa 2017 tch tion in tion in tion in tion in 8:30 AM [interp source source source source retatio data data data data n] by Immedia te spin Blood type & Crossmatch panel in Blood Observa Value Referen Units Interpr Notes Date ti ce etation Range Hold? N Transfuse now? 2 UNITS NOW Major COMPAT No No No No Feb 8 crossma informa informa informa informa 2017 tch tion in tion in tion in tion in 8:30 AM [interp source source source source retatio data data data data n] Major COMPAT No No No No Feb 8 crossma informa informa informa informa 2017 tch tion in tion in tion in tion in 8:30 AM [interp source source source source retatio data data data data n] by Immedia te spin Comprehensive metabolic 2000 panel in Serum or Plasma Observa Value Referen Units Interpr Notes Date tion ce etation Range Albumin/G 1.1 - 1.8 No Low No Mar 03 lobulin informati informati 2016 [Mass on in on in 11:16 AM ratio] in source source Serum or data data Plasma Albumin 3.4 - 5.0 gm/dL Normal No Mar 03 [Mass/vol informati 2017 ume] in on in 11:16 AM Serum or source Plasma data Alkaline 46 - 116 U/L Normal No Mar 03 phosphata informati 2016 se on in 11:16 AM [Enzymati source c data activity/ volume] in Serum or Plasma Bilirubin 0.2 - 1.0 mg/dL Normal No Mar 03 .total informati 2016 [Mass/vol on in 11:16 AM ume] in source Serum or data Plasma Urea 7 - 18 mg/dL Normal No Mar 03 nitrogen informati 2017 [Mass/vol on in 11:16 AM ume] in source Serum or data Plasma Calcium 8.5 - mg/dL Normal Mar 03 [Mass/vol 10.1 informati 2016 ume] in on in 11:16 AM Serum or source Plasma data Chloride 98 - 107 mmoL/L Normal No Mar 03 [Moles/vo informati 2017 lume] in on in 11:16 AM Serum or source Plasma data Carbon 21.0 - mmoL/L Normal No Mar 03 dioxide, 32.0 informati 2016 total on in 11:16 AM [Moles/vo source lume] in data Serum or Plasma Creatinin 0.55 - mg/dL Normal No Mar 03 e 1.02 informati 2016 [Mass/vol on in 11:16 AM ume] in source Serum or data Plasma Estimated 59- ML/MIN No REFERENCE Mar 03 informati RANGE: 2017 glomerula on in >60 11:16 AM r source ML/MIN/1. filtratio data 73 SQUARE n rate METERSIf (GF this patient is -A merican, then multiply theresult by 1.210. Globulin 1.3 - 3.2 gm/dL High No Mar 03 [Mass/vol informati 2017 ume] in on in 11:16 AM Serum source data Glucose 74 - 106 mg/dL Normal Mar 03 [Mass/vol informati 2016 ume] in on in 11:16 AM Serum or source Plasma data Potassium 3.5 - 5.1 mmoL/L Normal No Mar 03 informati 2016 [Moles/vo on in 11:16 AM lume] in source Serum or data Plasma Sodium 136 - 145 mmoL/L Normal Mar 03 [Moles/vo informati 2017 lume] in on in 11:16 AM Serum or source Plasma data Aspartate 15 - 37 U/L Low No Mar 03 informati 2016 aminotran on in 11:16 AM sferase source [Enzymati data c activity/ volume] in Serum or Plasma Alanine 12 - 78 U/L Normal No Mar 03 aminotran informati 2016 sferase on in 11:16 AM [Enzymati source c data activity/ volume] in Serum or Plasma Protein 6.4 - 8.2 gm/dL Normal No Nov 7 [Mass/vol informati 2017 ume] in on in 11:16 AM Serum or source Plasma data Choriogonadotropin [Units/volume] in Serum or Plasma Observa Value Referen Units Interpr Notes Date tion ce etation Range Choriogon NEG No No No Feb 7 adotropin informati informati informati 2017 on in on in on in 11:16 AM [Units/vo source source source lume] in data data data Serum or Plasma Urinalysis dipstick W Reflex Microscopic panel in Urine Observa Value Referen Units Interpr Notes Date tion ce etation Range Appeara CLEAR CLEAR No No No Feb 7 nce of informa informa informa 2017 Urine tion in tion in tion in 11:16 source source source AM data data data Bacteri TRACE O No No No Feb 7 a informa informa informa 2016 [Presen tion in tion in tion in 11:16 ce] in source source source AM Urine data data data sedimen t by Light microsc opy Bilirub NEGATIV NEG No No No Feb 7 in E informa informa informa 2016 [Presen tion in tion in tion in 11:16 ce] in source source source AM Urine data data data by Test strip Erythro TRACE-I NEG No No No Feb 7 cytes NTACT informa informa informa 2016 [Presen tion in tion in tion in 11:16 ce] in source source source AM Urine data data data Color YELLOW YELLOW No No No Feb 7 of informa informa informa 2016 Urine tion in tion in tion in 11:16 source source source AM data data data Glucose NEG No No No Feb 7 [Mass/vol informati informati informati 2017 ume] in on in on in on in 11:16 AM Urine by source source source Test data data data strip Ketones NEGATIV NEG mg/dL No No Feb 7 E informa informa 2016 [Presen tion in tion in 11:16 ce] in source source AM Urine data data by Automat ed test strip Mucus NEGATIV NEG No No No Feb 7 [Presen E informa informa informa 2016 ce] in tion in tion in tion in 11:16 Urine source source source AM sedimen data data data t by Light microsc opy Nitrite NEGATIV NEG No No No Feb 7 E informa informa informa 2016 [Presen tion in tion in tion in 11:16 ce] in source source source AM Urine data data data by Test strip pH of 5.0 - 8.5 No Normal No Feb 7 Urine informati informati 2016 on in on in 11:16 AM source source data data Protein NEG mg/dL No No Feb 7 [Mass/vol informati informati 2016 ume] in on in on in 11:16 AM Urine by source source Automated data data test strip Erythro OCC 0 rbc/hpf No No Feb 7 cytes informa informa 2016 [Presen tion in tion in 11:16 ce] in source source AM Urine data data sedimen t by Light microsc opy Specific 1.005 - No Normal No Feb 7 gravity 1.030 informati informati 2016 of Urine on in on in 11:16 AM source source data data Epithel OCC 0 - 5 #/hpf No No Feb 7 ial informa informa 2017 cells.s tion in tion in 11:16 quamous source source AM data data [Presen ce] in Urine sedimen t by Microsc opy high power field Urobili 0.2 NEG E.U./dL No No Feb 7 nogen informa informa 2016 [Presen tion in tion in 11:16 ce] in source source AM Urine data data by Test strip Leukocyte O wbc/hpf No No Feb 7 s informati informati 2016 [#/volume on in on in 11:16 AM ] in source source Urine data data CBC W Auto Differential panel in Blood Observa Value Referen Units Interpr Notes Date tion ce etation Range Basophils 0 - 0.2 K/MM3 Normal No Feb 7 inform2016 [#/volume on in 11:16 AM ] in source Blood by data Automated count Basophils 0.1 - 2.0 % Normal No Nov 7 /100 informati 2016 leukocyte on in 11:16 AM s in source Blood by data Automated count Eosinophi 0.0 - 0.4 K/mm3 Normal No Feb 7 ls informati 2016 [#/volume on in 11:16 AM ] in source Blood by data Automated count Eosinophi 0.1 - % Normal No Feb 7 ls/100 12.0 informati 2016 leukocyte on in 11:16 AM s in source Blood by data Automated count Granulocy 1.8 - 7.8 K/mm3 Normal No Feb 7 shahab inform2016 [#/volume on in 11:16 AM ] in source Blood by data Automated count Granulocy 37.0 - % Normal No Feb 7 shahab/100 80.0 inform2016 leukocyte on in 11:16 AM s in source Blood by data Automated count Hematocri 37.0 - % Low No Mar 03 t [Volume 47.0 ati 2016 on in 11:16 AM Fraction] source of Blood data Hemoglobi 12.2 - g/dL Low alert Mar 03 n 16.2 2017 [Mass/vol CRITICAL 11:16 AM ume] in RESULTS Blood RESU LTS CALLED TO: 03/03/17 [address] [place] Lymphocyt 0.7 - 4.5 K/mm3 Normal No Mar 03 es inform2016 [#/volume on in 11:16 AM ] in source Unspecifi data ed specimen by Automated count Lymphocyt 10 - 50.0 % Normal No Mar 03 es inform2016 [#/volume on in 11:16 AM ] in source Unspecifi data ed specimen by Automated count Erythrocy 27 - 31.2 pg Low No Mar 03 te mean 2016 corpuscul on in 11:16 AM ar source hemoglobi data n [Entitic mass] Erythrocy 31.8 - g/dl Low No Mar 03 te mean 35.4 2016 corpuscul on in 11:16 AM ar source hemoglobi data n concentra tion [Mass/vol ume] by Automated count Erythrocy 82.2 - fl Low No Mar 03 te mean 97.8 inform2016 corpuscul on in 11:16 AM ar volume source [Entitic data volume] by Automated count Monocytes 0.1 - 1.0 K/mm3 Normal No Feb 7 inform2016 [#/volume on in 11:16 AM ] in source Blood by data Automated count Monocytes 1.7 - 9.3 % Normal No Feb 7 /100 informati 2017 leukocyte on in 11:16 AM s in source Blood by data Automated count Platelet 7.4 - fl Normal No Nov 7 mean 10.4 2016 volume on in 11:16 AM [Entitic source volume] data in Blood by Automated count Platelets 142 - 424 K/mm3 Normal No Feb 7 2016 [#/volume on in 11:16 AM ] in source Blood data Erythrocy 4.2 - 5.4 M/mm3 Low No Feb 7 shahab 2016 [#/volume on in 11:16 AM ] in source Amniotic data fluid Erythrocy 11.5 - % Normal No Mar 03 te 17.5 2016 distribut on in 11:16 AM ion width source [Entitic data volume] by Automated count Leukocyte 4.8 - K/MM3 Normal No Feb 7 s 10.8 2016 [#/volume on in 11:16 AM ] in source Blood data Urinalysis dipstick W Reflex Microscopic panel in Urine Observa Value Referen Units Interpr Notes Date tion ce etation Range Appeara CLEAR CLEAR No No No Feb 7 nce of informa informa informa 2016 Urine tion in tion in tion in 11:16 source source source AM data data data Bilirub NEGATIV NEG No No No Feb 7 in E informa informa informa 2016 [Presen tion in tion in tion in 11:16 ce] in source source source AM Urine data data data by Test strip Erythro TRACE-I NEG No No No Feb 7 cytes NTACT informa informa informa 2016 [Presen tion in tion in tion in 11:16 ce] in source source source AM Urine data data data Color YELLOW YELLOW No No No Nov 7 of informa informa informa 2016 Urine tion in tion in tion in 11:16 source source source AM data data data Glucose NEG No No No Feb 7 [Mass/vol informati informati informati 2016 ume] in on in on in on in 11:16 AM Urine by source source source Test data data data strip Ketones NEGATIV NEG mg/dL No No Feb 7 E informa informa 2016 [Presen tion in tion in 11:16 ce] in source source AM Urine data data by Automat ed test strip Mucus NEGATIV NEG No No No Nov 7 [Presen E informa informa informa 2016 ce] in tion in tion in tion in 11:16 Urine source source source AM sedimen data data data t by Light microsc opy Nitrite NEGATIV NEG No No No Feb 7 E informa informa informa 2016 [Presen tion in tion in tion in 11:16 ce] in source source source AM Urine data data data by Test strip pH of 5.0 - 8.5 No Normal No Nov 7 Urine informati informati 2017 on in on in 11:16 AM source source data data Protein NEG mg/dL No No Feb 7 [Mass/vol informati informati 2016 ume] in on in on in 11:16 AM Urine by source source Automated data data test strip Specific 1.005 - No Normal No Feb 7 gravity 1.030 informati informati 2016 of Urine on in on in 11:16 AM source source data data Urobili 0.2 NEG E.U./dL No No Mar 03 nogen informa informa 2016 [Presen tion in tion in 11:16 ce] in source source AM Urine data data by Test strip Urinalysis dipstick W Reflex Microscopic panel in Urine Observa Value Referen Units Interpr Notes Date tion ce etation Range Appeara CLEAR CLEAR No No No Feb 12 nce of informa informa informa 2016 Urine tion in tion in tion in 11:35 source source source PM data data data Bacteri 1+ O No No No Feb 12 a informa informa informa 2016 [Presen tion in tion in tion in 11:35 ce] in source source source PM Urine data data data sedimen t by Light microsc opy Bilirub NEGATIV NEG No No No Feb 12 in E informa informa informa 2016 [Presen tion in tion in tion in 11:35 ce] in source source source PM Urine data data data by Test strip Erythro 2+ NEG No Abnorma No Feb 12 cytes informa l informa 2016 [Presen tion in tion in 11:35 ce] in source source PM Urine data data Color YELLOW YELLOW No No No Feb 12 of informa informa informa 2016 Urine tion in tion in tion in 11:35 source source source PM data data data Glucose NEG No No No Feb 12 [Mass/vol informati informati informati 2016 ume] in on in on in on in 11:35 PM Urine by source source source Test data data data strip Ketones NEGATIV NEG mg/dL No No Feb 12 E informa informa 2016 [Presen tion in tion in 11:35 ce] in source source PM Urine data data by Automat ed test strip Mucus NEGATIV NEG No No No Feb 12 [Presen E informa informa informa 2016 ce] in tion in tion in tion in 11:35 Urine source source source PM sedimen data data data t by Light microsc opy Nitrite NEGATIV NEG No No No Feb 12 E informa informa informa 2016 [Presen tion in tion in tion in 11:35 ce] in source source source PM Urine data data data by Test strip pH of 5.0 - 8.5 No Normal No Feb 12 Urine informati informati 2017 on in on in 11:35 PM source source data data Protein NEG mg/dL High No Feb 12 [Mass/vol informati 2017 ume] in on in 11:35 PM Urine by source Automated data test strip Erythro 20-50 0 rbc/hpf No No Feb 12 cytes informa informa 2016 [Presen tion in tion in 11:35 ce] in source source PM Urine data data sedimen t by Light microsc opy Specific 1.005 - No Normal No Feb 12 gravity 1.030 informati informati 2016 of Urine on in on in 11:35 PM source source data data Urobili 0.2 NEG E.U./dL No No Feb 12 nogen informa informa 2016 [Presen tion in tion in 11:35 ce] in source source PM Urine data data by Test strip Urinalysis dipstick W Reflex Microscopic panel in Urine Observa Value Referen Units Interpr Notes Date tion ce etation Range Appeara CLEAR CLEAR No No No Feb 12 nce of informa informa informa 2016 Urine tion in tion in tion in 11:35 source source source PM data data data Bilirub NEGATIV NEG No No No Feb 12 in E informa informa informa 2016 [Presen tion in tion in tion in 11:35 ce] in source source source PM Urine data data data by Test strip Erythro 2+ NEG No Abnorma No Feb 12 cytes informa l informa 2016 [Presen tion in tion in 11:35 ce] in source source PM Urine data data Color YELLOW YELLOW No No No Feb 12 of informa informa informa 2017 Urine tion in tion in tion in 11:35 source source source PM data data data Glucose NEG No No No Feb 12 [Mass/vol informati informati informati 2016 ume] in on in on in on in 11:35 PM Urine by source source source Test data data data strip Ketones NEGATIV NEG mg/dL No No Feb 12 E informa informa 2016 [Presen tion in tion in 11:35 ce] in source source PM Urine data data by Automat ed test strip Mucus NEGATIV NEG No No No Feb 12 [Presen E informa informa informa 2016 ce] in tion in tion in tion in 11:35 Urine source source source PM sedimen data data data t by Light microsc opy Nitrite NEGATIV NEG No No No Feb 12 E informa informa informa 2016 [Presen tion in tion in tion in 11:35 ce] in source source source PM Urine data data data by Test strip pH of 5.0 - 8.5 No Normal No Feb 12 Urine informati informati 2016 on in on in 11:35 PM source source data data Protein NEG mg/dL High No Feb 12 [Mass/vol informati 2016 ume] in on in 11:35 PM Urine by source Automated data test strip Specific 1.005 - No Normal No Feb 12 gravity 1.030 informati informati 2016 of Urine on in on in 11:35 PM source source data data Urobili 0.2 NEG E.U./dL No No Feb 12 nogen informa informa 2016 [Presen tion in tion in 11:35 ce] in source source PM Urine data data by Test strip Comprehensive metabolic 2000 panel in Serum or Plasma Observa Value Referen Units Interpr Notes Date tion ce etation Range Albumin/G 1.1 - 1.8 No Low No Feb 12 lobulin informati informati 2016 [Mass on in on in 10:25 PM ratio] in source source Serum or data data Plasma Albumin 3.4 - 5.0 gm/dL Low No Feb 12 [Mass/vol informati 2016 ume] in on in 10:25 PM Serum or source Plasma data Alkaline 46 - 116 U/L Normal No Feb 12 phosphata informati 2016 se on in 10:25 PM [Enzymati source c data activity/ volume] in Serum or Plasma Bilirubin 0.2 - 1.0 mg/dL Normal No Feb 12 .total informati 2016 [Mass/vol on in 10:25 PM ume] in source Serum or data Plasma Urea 7 - 18 mg/dL Normal No Feb 12 nitrogen informati 2017 [Mass/vol on in 10:25 PM ume] in source Serum or data Plasma Calcium 8.5 - mg/dL Low No Feb 12 [Mass/vol 10.1 informati 2016 ume] in on in 10:25 PM Serum or source Plasma data Chloride 98 - 107 mmoL/L Normal No Feb 12 [Moles/vo informati 2017 lume] in on in 10:25 PM Serum or source Plasma data Carbon 21.0 - mmoL/L Normal No Feb 12 dioxide, 32.0 informati 2016 total on in 10:25 PM [Moles/vo source lume] in data Serum or Plasma Creatinin 0.55 - mg/dL Normal No Feb 12 e 1.02 informati 2016 [Mass/vol on in 10:25 PM ume] in source Serum or data Plasma Creatinin 50 - 200 ML/MIN Normal No Feb 12 e renal informati 2017 clearance on in 10:25 PM source predicted data by Cockcroft -Gault formula Estimated 59- ML/MIN No REFERENCE Feb 12 informati RANGE: 2017 glomerula on in >60 10:25 PM r source ML/MIN/1. filtratio data 73 SQUARE n rate METERSIf (GF this patient is -A merican, then multiply theresult by 1.210. Globulin 1.3 - 3.2 gm/dL High No Feb 12 [Mass/vol informati 2016 ume] in on in 10:25 PM Serum source data Glucose 74 - 106 mg/dL Normal No Feb 12 [Mass/vol informati 2017 ume] in on in 10:25 PM Serum or source Plasma data Potassium 3.5 - 5.1 mmoL/L Normal No Feb 12 informati 2016 [Moles/vo on in 10:25 PM lume] in source Serum or data Plasma Sodium 136 - 145 mmoL/L Normal No Feb 12 [Moles/vo informati 2017 lume] in on in 10:25 PM Serum or source Plasma data Aspartate 15 - 37 U/L Low No Feb 12 inform 2017 aminotran on in 10:25 PM sferase source [Enzymati data c activity/ volume] in Serum or Plasma Alanine 12 - 78 U/L Low No Feb 12 aminotran 2016 sferase on in 10:25 PM [Enzymati source c data activity/ volume] in Serum or Plasma Protein 6.4 - 8.2 gm/dL Low No Feb 12 [Mass/vol inform2016 ume] in on in 10:25 PM Serum or source Plasma data Choriogonadotropin [Units/volume] in Serum or Plasma Observa Value Referen Units Interpr Notes Date tion ce etation Range Choriogon NEG No No No Feb 12 adotropin informati informati informati 2016 on in on in on in 10:23 PM [Units/vo source source source lume] in data data data Serum or Plasma CBC W Auto Differential panel in Blood Observa Value Referen Units Interpr Notes Date tion ce etation Range Basophils 0 - 0.2 K/MM3 Normal No Feb 122016 9:50 [#/volume on in PM ] in source Blood by data Automated count Basophils 0.1 - 2.0 % Normal No Feb 12 / informati 2016 9:50 leukocyte on in PM s in source Blood by data Automated count Eosinophi 0.0 - 0.4 K/mm3 High No Feb 12 ls informati 2016 9:50 [#/volume on in PM ] in source Blood by data Automated count Eosinophi 0.1 - % Normal No Feb 12 ls/100 12.0 informati 2016 9:50 leukocyte on in PM s in source Blood by data Automated count Granulocy 1.8 - 7.8 K/mm3 Normal No Feb 12 shahab informati 2016 9:50 [#/volume on in PM ] in source Blood by data Automated count Granulocy 37.0 - % Normal No Feb 12 shahab/100 80.0 informati 2016 9:50 leukocyte on in PM s in source Blood by data Automated count Hematocri 37.0 - % Low No Feb 12 t [Volume 47.0 informati 2016 9:50 on in PM Fraction] source of Blood data Hemoglobi 12.2 - g/dL No No Feb 12 n 16.2 informati informati 2016 9:50 [Mass/vol on in on in PM ume] in source source Blood data data Lymphocyt 0.7 - 4.5 K/mm3 High No Feb 12 es ati 2016 9:50 [#/volume on in PM ] in source Unspecifi data ed specimen by Automated count Lymphocyt 10 - 50.0 % Normal No Feb 12 es informati 2016 9:50 [#/volume on in PM ] in source Unspecifi data ed specimen by Automated count Erythrocy 27 - 31.2 pg Normal No Feb 12 te mean informati 2016 9:50 corpuscul on in PM ar source hemoglobi data n [Entitic mass] Erythrocy 31.8 - g/dl Normal No Feb 12 te mean 35.4 informati 2016 9:50 corpuscul on in PM ar source hemoglobi data n concentra tion [Mass/vol ume] by Automated count Erythrocy 82.2 - fl Normal No Feb 12 te mean 97.8 informati 2016 9:50 corpuscul on in PM ar volume source [Entitic data volume] by Automated count Monocytes 0.1 - 1.0 K/mm3 Normal No Feb 12 informati 2016 9:50 [#/volume on in PM ] in source Blood by data Automated count Monocytes 1.7 - 9.3 % Normal No Feb 12 /100 informati 2016 9:50 leukocyte on in PM s in source Blood by data Automated count Platelet 7.4 - fl Normal No Feb 12 mean 10.4 informati 2017 9:50 volume on in PM [Entitic source volume] data in Blood by Automated count Platelets 142 - 424 K/mm3 Normal No Feb 12 informati 2016 9:50 [#/volume on in PM ] in source Blood data Erythrocy 4.2 - 5.4 M/mm3 Normal No Feb 12 shahab informati 2016 9:50 [#/volume on in PM ] in source Amniotic data fluid Erythrocy 11.5 - % Normal No Feb 12 te 17.5 informati 2016 9:50 distribut on in PM ion width source [Entitic data volume] by Automated count Leukocyte 4.8 - K/MM3 High No Feb 12 s 10.8 informati 2016 9:50 [#/volume on in PM ] in source Blood data
--- OUTSIDE RECORDS SUMMARY | 2017-03-06 06:14 | External Medical Summary Rpt ---
[...] source source 17 PM data data data [id number] prepara RELEASE tion D [Type] 7GJim serra POSITIV E Blood product special preparation [Type] Observa Value Referen Units Interpr Notes Date tion ce etation Range Blood BLOOD No No No BLOOD Feb 8 product UNIT informa informa informa UNIT # 2017 RELEASE tion in tion in ti in : W0832 10:03 special source source source 17 AM data data data [id number] prepara RELEASE tion D [Type] 7Pilar Santa [...]
[2017-03-06 06:46] LABS: HEMOGLOBIN 10.3 g/dL (12.2-16.2)
--- NOTE | 2017-03-06 09:07 | Anesthesia Record ---
Anesthesia Record Part I Total IV fluids: 1100 EBL (ml): 300 Urine Output: 350 Units of blood given: 0 B/P: 109/59 % SaO2: 97 Pulse: 59 Resps: 14 Temp: 98.0 Patient is: Awake, Stable Stable to PACU at: 0900 at 0907
--- NOTE | 2017-03-06 09:08 | Anesthesia Record ---
Anesthesia Record Part II Discharge time: 929 Destination: OB PACU nurse assessment review? Yes Patient is: Awake, Stable Anesthesia complications? No at 0907
--- NOTE | 2017-03-06 09:09 | Operative Note ---
Procedure/Operative Record Date of Procedure: 03/06/17 Pre-op diagnosis: 1. Dysfunctional uterine bleeding. 2. Leiomyomata uteri. 3. Bilateral ovarian cysts. 4. Appendicolith. Post-op diagnosis: 1. Dysfunctional uterine bleeding. 2. Leiomyomata uteri. 3. RIGHT ovarian cyst. 4. Appendicolith. Procedure performed: 1. Total abdominal hysterectomy. 2. RIGHT salpingo-oophorectomy. 3. Appendectomy. Surgeon: Gregory Joel Emergency Room Physician(s): YEYO Lo Anesthesia: Gen., AUTO TECHNICIAN [facility] [place] Indications: 1. Dysfunctional uterine bleeding. 2. Leiomyomata uteri. 3. Bilateral ovarian cysts. 4. Appendicolith. Description of procedure: After the patient was prepped and draped in usual fashion and general anesthesia was administered, a low Pfannenstiel incision was made through the previous incision, and the fat and fascia were in usual fashion, bleeders being clamped and coagulated along the way. The peritoneum was entered with a knife, and extended above and below with Metzenbaum scissors. The bowel was packed away and a self-retaining [place] retractor with bladder blade was placed. The uterus was enlarged and irregular in contour, with multiple leiomyomata. Each tube showed evidence of previous ligation. The LEFT ovary appeared normal. The RIGHT ovary contained a 5 cmthis cystic mass. The bladder was densely adherent to the anterior uterine lower segment. The round ligament on either side was Samy clamped, cut, and Samy sutured with #1 Vicryl. The bladder peritoneum was then carefully sharply and bluntly dissected free. On the RIGHT side, the ovarian and infundibulopelvic ligaments were crossclamped and cut, thus including the RIGHT tube and ovary within the uterine specimen. These pedicles were Samy sutured, and then free tied with #1 Vicryl. On the LEFT side, the ovarian pedicle was crossclamped and cut, thus leaving the LEFT adnexa in situ. The uterine vessels, the cardinal and uterosacral ligaments were individually, bilaterally, Samy clamped, cut, and Samy suture with #1 Vicryl. The vaginal cuff was crossclamped with 2 Joe clamps, And the uterine specimen was excised with a knife. The cervix was identified as intact. The vaginal cuff was closed with a running locked suture of #1 Vicryl. Irrigation was then carried out and there was no undue bleeding. Gelfoam was placed against the back of the vaginal cuff. The appendix was then identified, it was retrocecal and long, and contained a fairly large appendicolith near its sphincter. The base of the appendix was doubly crossclamped and doubly ligated, and then the appendix was excised with a knife, and the stumps coagulated with a Bovie. There was no undue bleeding. The pelvis was again inspected and found to be clean. The peritoneum was grasped with 3 Elodia clamps, and closed with a running semi-locked suture of 0 Vicryl. The muscle was approximated with a running unlocked suture of 0 Vicryl. The fascia was closed with a running locked suture of #1 Vicryl. The subcutaneous fat and Miguel A's fascia were closed with a running unlocked suture of 2-0 Vicryl. The skin was closed with subcuticular suture of 3-0 Vicryl, and appropriately dressed. The sponge and needle counts correct. The estimated blood loss was 300 mL. The urine was clear in the Cox catheter. The patient tolerated the procedure well, and was taken to PACU in excellent condition. She will be admitted postoperatively. EBL (ml): 300 Complications: None Specimens: 1. Uterus. 2. RIGHT adnexa. 3. Appendix. at 0908
[2017-03-06 10:11] LABS: HEMOGLOBIN 9.5 g/dL (12.2-16.2)
--- NOTE | 2017-03-06 11:35 | PHARMACY CLINIC NOTE ---
Patient Demographics Patient Demographics Admission date: 03/06/17 Date: 03/06/17 Time: 1134 Allergies Coded Allergies: Penicillins (Intermediate, I-HIVES 03/06/17) HEIGHT- FT: 5 IN: 3.00 K.122 VTE General Information Labs: Laboratory Tests 03/06 03/06 1000 0635 Hematology Hgb (12.2 - 16.2 g/dL) 9.5 L 10.3 L Hct (37.0 - 47.0 %) 30.1 L 31.9 L Disclaimer The following section includes nursing documentation that has been pulled in for pharmacy review. Patient's VTE score: 3 Patient's VTE Risk: LOW RISK VTE prophylaxis NQF 0371 VTE prophylaxis ordered? Yes Type of prophylaxis/treatment: ICD, Lovenox at 3744
[2017-03-06 13:04] LABS: URINE BILIRUBIN - DIPSTICK NEGATIVE (NEG); URINE BLOOD TRACE-INTACT (NEG)
--- NOTE | 2017-03-06 13:10 | ACUTE CARE PROGRESS NOTE (QUA) ---
Progress Notes Subjective Date 03/06/17 Time 1308 Note This is day of surgery. The patient is afebrile. Vital signs stable. Pain is under control. Wound clean, abdomen soft. Surgery is been explained to the patient. Dr. Rosalee Dailey will be attending the patient over the weekend the patient is aware of that. Assessment/Plan This inpt stay is expected to cross 2 MNs from start of care Yes (major surgery) at 5533
[2017-03-07] VITALS: BP 118/76
[2017-03-07 04:00] VITALS: BP 112/68
[2017-03-07 08:25] VITALS: BP 109/55
--- NOTE | 2017-03-07 12:27 | ACUTE CARE PROGRESS NOTE (QUA) ---
Progress Notes Subjective Date 03/07/17 Time 1115 Note POD #1 JOCELYN No complaints this am Has been taking po liquid diet and po pain meds without difficulty Pain control sufficient Catheter removed this am and she has voided successfully Patient/family reports: feeling better Nursing reports: no complaints, patient eager to advance to regular diet Objective Findings last VS-Temp:98.3 B/P:109/55 Pulse:81 Resp:20 SaO2:98 ROOM AIR Last weight lbs:159 oz:0 K.122 Method:Floor Scales Hgb (postop) 9.5 Exam General appearance: alert, awake, no acute distress ENT: teeth/gums abnormal Cardiovascular: normal peripheral pulses Respiratory: no respiratory distress ABD: non-distended, normal bowel sounds, soft, no tenderness Genitourinary: normal voiding & quantity Extremities: no calf tenderness Skin: dry, warm Neuro: speech clear Reviewed: allergies, medications, vital signs, lab results Assessment/Plan Problem List 1. DUB (dysfunctional uterine bleeding) Patient condition Stable Plan: Advance postop care as tolerated Regular diet ordered Hgb stable but patient was transfused preop; will repeat Hgb in am Continue ambulation and IS use This inpt stay is expected to cross 2 MNs from start of care Yes (major surgery) at 7533
[2017-03-07 16:30] VITALS: BP 117/70
[2017-03-07 20:19] VITALS: BP 113/54
[2017-03-08] VITALS (7 sets, daily range): BP systolic 108–123; BP diastolic 61–68
--- NOTE | 2017-03-08 15:11 | ACUTE CARE PROGRESS NOTE (QUA) ---
Progress Notes Subjective Date 03/08/17 Time 1200 Note POD #2 JOCELYN No complaints Tolerating regular diet, ambulating and voiding without difficulty + flatus Planning to remove bandage in shower today Nursing reports: no complaints Objective Findings Last VS-Temp:98.5 B/P:112/67 Pulse:81 Resp:18 SaO2:98 ROOM AIR Last weight lbs:159 oz:0 K.122 Method:Floor Scales Exam General appearance: alert, awake, no acute distress ENT: teeth/gums abnormal Respiratory: no respiratory distress ABD: non-distended, no rebound, soft, no guarding, abdominal dressing dry/ intact Genitourinary: normal voiding & quantity Skin: dry, warm Neuro: speech clear Reviewed: allergies, medications, vital signs, lab results Assessment/Plan Problem List 1. DUB (dysfunctional uterine bleeding) 2. Postoperative anemia Patient condition Stable (Anemia acute on chronic) Plan: continue current care (Anticipate discharge tomorrow) This inpt stay is expected to cross 2 MNs from start of care Yes (major surgery) Comments: Planning ambulation to shower today Remove abdominal dressing in shower Continue regular diet and general postoperative care Acute on chronic anemia secondary to HMB, uterine fibroids; transfusion completed prior to surgery and postop Hgb stable/as expected Discharge planned for tomorrow at 1511
[2017-03-09 03:50] VITALS: BP 120/57
--- NOTE | 2017-03-09 06:24 | ACUTE CARE PROGRESS NOTE (QUA) ---
Progress Notes Subjective Date 03/09/17 Time 0622 Note This is postop day number 3. The patient is afebrile. Vital signs stable. Wound clean. Abdomen soft. She is eating and ambulating, and has had a bowel movement. Her hemoglobin is 9.0 g, but she is clinically stable. She will be discharged today. Assessment/Plan Problem List 1. DUB (dysfunctional uterine bleeding) 2. Postoperative anemia This inpt stay is expected to cross 2 MNs from start of care Yes (major surgery) at 0624
--- NOTE | 2017-03-09 06:27 | DISCHARGE SUMMARY STANDARD ---
Discharge Summary Date of admission: 03/06/17 Date of discharge: 03/09/17 Patient condition: Stable Discharge diagnosis (es): 1. Dysfunctional uterine bleeding. 2. Leiomyomata uteri. 3. Bilateral ovarian cysts. 4. Appendicolith. 5. Anemia. Hospital course: This 36-year-old white female was admitted for definitive treatment of the above diagnoses. She had been transfused prior to admission. On the date of admission, she was taken to the operating room, where she underwent a total abdominal hysterectomy, RIGHT salpingo-oophorectomy, and appendectomy, without complications. Her hemoglobin on admission was 10.3 g; postoperatively it is 9.0 g, but she is clinically stable. Postoperatively, the patient has done well. She is eating and ambulating, and does have bowel movement. Her abdomen is soft. Her wound is clean. Her vital signs are stable. She is not a smoker. She is discharged home on the third postoperative day on Percocet 5/325 (number 30), 1 by mouth every 6 hours when necessary pain; and on iron 3 times a day. She is given appropriate instructions as to diet, exercise, and wound care, and she is to return to the office in 2 weeks for follow-up. at 1178
[2017-03-09] MEDS ORDERED: HYDROCODONE-APA1 TA1 PO (06:29)
[2017-03-09] MEDS ORDERED: FERROUS SULFAT325 M2 PO (06:31)
[2017-03-09 08:30] VITALS: BP 107/55
[2017-03-09 12:20] VITALS: BP 106/54
== END 2017-03-09 12:20 | disposition home or self-care (01) | DRG 743 ==
LOC: OB 06:09 → EDSTATUS 07:30 → SDC 07:30 → OB 07:30
PROVIDERS: Obstetrics & Gynecology
PROC: 0UT50ZZ Resection of Right Fallopian Tube, Open Approach (ICD-10-PCS; principal; 2017-03-06 07:30)
PROC: 0UT00ZZ Resection of Right Ovary, Open Approach (ICD-10-PCS; principal; 2017-03-06 07:30)
PROC: 0UT90ZZ Resection of Uterus, Open Approach (ICD-10-PCS; principal; 2017-03-06 07:30)
DX: N93.8 Other specified abnormal uterine and vaginal bleeding (principal); D25.1 Intramural leiomyoma of uterus; D25.2 Subserosal leiomyoma of uterus; N83.292 Other ovarian cyst, left side; N83.291 Other ovarian cyst, right side
CPT/HCPCS: J0131; J0330; J2405; J2710; P9016